=== PATIENT | male | born 1950 | race Caucasian/White ===

== ENCOUNTER 2024-04-19 11:36 | Observation (INO) ==
[2024-04-19] MEDS ORDERED: NS 1,000 ML IV 1,000 ML ONE ×2 (12:59→14:34)
[2024-04-19] MEDS: NS 1,000 ML IV 1,000 ML IV ONE ×3 (13:00→14:45)
[2024-04-19] MEDS: FARXIGA PO SCH (13:13)
[2024-04-19 13:28] LABS: BASOPHILS # (AUTO) 0.1 X10^3/uL (0.0-0.1); BASOPHILS % (AUTO) 0.6 % (0.2-1.0); EOSINOPHILS % (AUTO) 0.4 % (0.9-2.9); HEMATOCRIT 43.7 % (42.0-54.0); HEMOGLOBIN 14.8 g/dL (13.5-18.0); LYMPHOCYTES # (AUTO) 0.9 X10^3/uL (1.3-2.9); LYMPHOCYTES % (AUTO) 9.5 % (21.0-51.0); MEAN CORPUSCULAR HEMOGLOBIN 31.9 pg (27.0-34.0); MEAN CORPUSCULAR HGB CONC 33.8 g/dL (33.0-35.0); MEAN CORPUSCULAR VOLUME 94.5 fL (80.0-100.0); MEAN PLATELET VOLUME 8.5 fL (7.4-11.0); MONOCYTES % (AUTO) 10.2 % (0.0-13.0); NEUTROPHILS # (AUTO) 7.5 x10^3/uL (2.2-4.8); NEUTROPHILS % (AUTO) 79.3 % (42.0-75.0); PLATELET COUNT 163 X10^3/uL (150.0-450.0); RED BLOOD COUNT 4.63 X10^6/uL (4.7-6.0); RED CELL DISTRIBUTION WIDTH 14.4 % (11.6-16.5); WHITE BLOOD COUNT 9.4 X10^3/uL (3.6-10.0)
[2024-04-19 13:40] LABS: ALBUMIN 3.1 g/dL (3.4-5.0); CALCIUM 8.6 mg/dL (8.5-10.1); CARBON DIOXIDE 28.2 mmol/L (21-32); COR CA(FOR HYPOALB) 9.3 mg/dL (8.5-10.1); CREATININE 2.86 mg/dL (0.70-1.30); POTASSIUM 4.8 mmol/L (3.5-5.1); TOTAL PROTEIN 6.7 g/dL (6.4-8.2)
[2024-04-19] MEDS: NS 1,000 ML IV 1,000 ML IV SCH ×2 (13:50→15:27)
[2024-04-19] MEDS: AVELOX IV 400 MG/250 ML BAG 400 MG/250 ML PIGGYBACK IV SCH (13:50)
[2024-04-19] MEDS: XOPENEX 1.25 MG/3 ML NEBULE NEB SCH (14:30)
[2024-04-19 18:20] VITALS: BMI 30.4
[2024-04-19] MEDS: PULMICORT NEB TX 0.5 MG NEB SCH (20:38)
[2024-04-19] MEDS: RESTORIL CAP 15 MG PO PRN (20:55)
[2024-04-19] MEDS: TYLENOL 325 MG TAB PO PRN (20:57)
[2024-04-20 05:13] LABS: BASOPHILS % (AUTO) 0.4 % (0.2-1.0); EOSINOPHILS # (AUTO) 0.1 x10^3/uL (0.0-0.2); EOSINOPHILS % (AUTO) 1.1 % (0.9-2.9); HEMATOCRIT 39.2 % (42.0-54.0); HEMOGLOBIN 13.4 g/dL (13.5-18.0); LYMPHOCYTES # (AUTO) 1.2 X10^3/uL (1.3-2.9); LYMPHOCYTES % (AUTO) 20.3 % (21.0-51.0); MEAN CORPUSCULAR HEMOGLOBIN 32.5 pg (27.0-34.0); MEAN CORPUSCULAR HGB CONC 34.2 g/dL (33.0-35.0); MEAN PLATELET VOLUME 8.8 fL (7.4-11.0); MONOCYTES # (AUTO) 0.8 x10^3/uL (0.3-0.8); MONOCYTES % (AUTO) 13.8 % (0.0-13.0); NEUTROPHILS # (AUTO) 3.7 x10^3/uL (2.2-4.8); NEUTROPHILS % (AUTO) 64.4 % (42.0-75.0); PLATELET COUNT 139 X10^3/uL (150.0-450.0); RED BLOOD COUNT 4.13 X10^6/uL (4.7-6.0); WHITE BLOOD COUNT 5.7 X10^3/uL (3.6-10.0)
[2024-04-20 05:56] LABS: ALBUMIN 2.6 g/dL (3.4-5.0); CALCIUM 7.8 mg/dL (8.5-10.1); CARBON DIOXIDE 19.8 mmol/L (21-32); COR CA(FOR HYPOALB) 8.9 mg/dL (8.5-10.1); CREATININE 2.45 mg/dL (0.70-1.30); POTASSIUM 4.5 mmol/L (3.5-5.1); TOTAL PROTEIN 5.8 g/dL (6.4-8.2)
--- NOTE | 2024-04-20 07:08 | RAD ---
EXAM:CHEST, 1 VIEWHISTORY:Shortness of breathCOMPARISON:None available.FINDINGS:The trachea is midline. The cardiac silhouette is enlarged with a tortuous thoracic aorta . The lungs are clear without focal infiltrate or effusion. The bony thorax is unremarkable.IMPRESSION:No acute cardiopulmonary disease.THIS IS AN ELECTRONICALLY VERIFIED FINAL [id number]/20/2024 7:05 AM - Electronically signed by Brian Mansfield MD
[2024-04-20] MEDS: NS 1,000 ML IV 2,000 ML IV ONE (09:30)
[2024-04-20] MEDS: NORCO 5/325 MG TAB PO PRN (20:23)
[2024-04-21 05:40] LABS: BASOPHILS % (AUTO) 0.3 % (0.2-1.0); EOSINOPHILS # (AUTO) 0.1 x10^3/uL (0.0-0.2); EOSINOPHILS % (AUTO) 2.1 % (0.9-2.9); HEMATOCRIT 37.5 % (42.0-54.0); HEMOGLOBIN 12.7 g/dL (13.5-18.0); LYMPHOCYTES # (AUTO) 1.3 X10^3/uL (1.3-2.9); LYMPHOCYTES % (AUTO) 24.1 % (21.0-51.0); MEAN CORPUSCULAR HEMOGLOBIN 32.2 pg (27.0-34.0); MEAN CORPUSCULAR HGB CONC 33.8 g/dL (33.0-35.0); MEAN CORPUSCULAR VOLUME 95.3 fL (80.0-100.0); MEAN PLATELET VOLUME 8.7 fL (7.4-11.0); MONOCYTES # (AUTO) 0.7 x10^3/uL (0.3-0.8); MONOCYTES % (AUTO) 13.2 % (0.0-13.0); NEUTROPHILS # (AUTO) 3.2 x10^3/uL (2.2-4.8); NEUTROPHILS % (AUTO) 60.3 % (42.0-75.0); PLATELET COUNT 131 X10^3/uL (150.0-450.0); RED BLOOD COUNT 3.94 X10^6/uL (4.7-6.0); WHITE BLOOD COUNT 5.3 X10^3/uL (3.6-10.0)
[2024-04-21 06:03] LABS: ALANINE AMINOTRANSFERASE 23 Units/L (12-78); ALBUMIN 2.5 g/dL (3.4-5.0); ALKALINE PHOSPHATASE 101 Units/L (46-116); ASPARTATE AMINO TRANSFERASE 27 Units/L (15-37); BLOOD UREA NITROGEN 28 mg/dL (7-18); CALCIUM 7.8 mg/dL (8.5-10.1); CARBON DIOXIDE 19.3 mmol/L (21-32); CHLORIDE 111 mmol/L (98-107); CREATININE 2.29 mg/dL (0.70-1.30); GLUCOSE 94 mg/dL (65-99); POTASSIUM 4.6 mmol/L (3.5-5.1); SODIUM 143 mmol/L (136-145); TOTAL PROTEIN 5.8 g/dL (6.4-8.2); eGFR NON BLACK RACES 30 (>60)
--- NOTE | 2024-04-21 09:14 | RAD ---
EXAM:Chest PA and lateral viewsHISTORY:CoughCOMPARISON:04/19/2024 .br.br.br.br spaces. The submitted lateral view is nondiagnostic. There is no evidence for pneumonia, pneumothorax or CHF.IMPRESSION:No change or acute findings. See above.THIS IS AN ELECTRONICALLY VERIFIED FINAL [id number]/21/2024 9:11 AM - Electronically signed by Milan Phelan MD
[2024-04-21] MEDS ORDERED: TEMAZEPAM 30 MG PO PRN (10:25)
[2024-04-21] MEDS ORDERED: PERCOCET TAB 5/325 MG PO PRN (10:25)
[2024-04-21] MEDS ORDERED: PREGABALIN 200 MG PO SCH (10:30)
[2024-04-21] MEDS ORDERED: RESTORIL CAP 30 MG PO PRN (11:00)
[2024-04-21] MEDS: TOPROL XL PO STA (11:11)
[2024-04-21] MEDS: MICARDIS PO STA (11:11)
[2024-04-21] MEDS: FLOMAX PO SCH (11:11)
[2024-04-21] MEDS ORDERED: CATAPRES TAB 0.1 MG PO ONE (13:23)
--- NOTE | 2024-04-21 13:35 | EKG ---
Test Reason : protocol htn Blood Pressure : */* mmHG Vent. Rate : 71 BPM Atrial Rate : * BPM P-R Int : * ms QRS Dur : 80 ms QT Int : 390 ms P-R-T Axes : * -44 14 degrees QTc Int : 423 ms Atrial fibrillation Left axis deviation Abnormal ECG No previous ECGs available Confirmed by Nick Cristina MD ([id number]) on 04/22/2024 7:42:37 AM Referred By: Confirmed By: Nick Cristina MD
[2024-04-22 05:52] LABS: BASOPHILS % (AUTO) 0.3 % (0.2-1.0); EOSINOPHILS # (AUTO) 0.1 x10^3/uL (0.0-0.2); EOSINOPHILS % (AUTO) 2.1 % (0.9-2.9); HEMATOCRIT 36.8 % (42.0-54.0); HEMOGLOBIN 12.8 g/dL (13.5-18.0); LYMPHOCYTES # (AUTO) 1.2 X10^3/uL (1.3-2.9); LYMPHOCYTES % (AUTO) 18.4 % (21.0-51.0); MEAN CORPUSCULAR HEMOGLOBIN 32.5 pg (27.0-34.0); MEAN CORPUSCULAR HGB CONC 34.7 g/dL (33.0-35.0); MEAN CORPUSCULAR VOLUME 93.7 fL (80.0-100.0); MEAN PLATELET VOLUME 8.9 fL (7.4-11.0); MONOCYTES # (AUTO) 0.6 x10^3/uL (0.3-0.8); MONOCYTES % (AUTO) 10.2 % (0.0-13.0); NEUTROPHILS # (AUTO) 4.3 x10^3/uL (2.2-4.8); PLATELET COUNT 130 X10^3/uL (150.0-450.0); RED BLOOD COUNT 3.93 X10^6/uL (4.7-6.0); WHITE BLOOD COUNT 6.3 X10^3/uL (3.6-10.0)
[2024-04-22 06:14] LABS: ALANINE AMINOTRANSFERASE 24 Units/L (12-78); ALBUMIN 2.5 g/dL (3.4-5.0); ALKALINE PHOSPHATASE 105 Units/L (46-116); ASPARTATE AMINO TRANSFERASE 26 Units/L (15-37); BLOOD UREA NITROGEN 30 mg/dL (7-18); CALCIUM 8.1 mg/dL (8.5-10.1); CHLORIDE 110 mmol/L (98-107); COR CA(FOR HYPOALB) 9.3 mg/dL (8.5-10.1); CREATININE 2.14 mg/dL (0.70-1.30); GLUCOSE 89 mg/dL (65-99); POTASSIUM 4.5 mmol/L (3.5-5.1); SODIUM 142 mmol/L (136-145); TOTAL PROTEIN 5.9 g/dL (6.4-8.2); eGFR NON BLACK RACES 32 (>60)
[2024-04-22] MEDS: LOVENOX INJ 40 MG SYR SC SCH (10:24)
[2024-04-22 12:38] VITALS: BP 144/76; PULSE 69; RESP 25; TEMP 98.1; O2SAT 94
== END 2024-04-22 12:25 | disposition home or self-care (01) ==
LOC: ICU → EDBD
PROVIDERS: ADMIT Obstetrics & Gynecology Obstetrics; ATTEND Obstetrics & Gynecology Obstetrics
DX: E11.65 Type 2 diabetes mellitus with hyperglycemia; R06.02 Shortness of breath; R42 Dizziness and giddiness; W18.39XA Other fall on same level, initial encounter; N17.8 Other acute kidney failure; I95.89 Other hypotension; Z79.899 Other long term (current) drug therapy; I10 Essential (primary) hypertension; J12.2 Parainfluenza virus pneumonia; R09.02 Hypoxemia; R53.1 Weakness; B96.5 Pseudomonas (aeruginosa) (mallei) (pseudomallei) as the cause of diseases classified elsewhere; I48.91 Unspecified atrial fibrillation